=== PATIENT | female | born 1955 | race Caucasian/White ===

== ENCOUNTER → 2021-04-12 | Outpatient (CLI) | payer BC ==
[~2021-04-12] MED LIST: ASPIRIN EC81 MG PO; CLARITIN10 MG PO; ISORDIL TAB 2020 MG PO; NITROGLYCERIN0.4 MG SL; NITROSTAT0.4 MG SL; SYNTHROID75 MCG PO; TOPROL XL25 MG PO
== END ==
LOC: HEART 5 03-31 14:30
DX: I25.10 Atherosclerotic heart disease of native coronary artery without angina pectoris (principal); R06.02 Shortness of breath; R00.2 Palpitations
CPT/HCPCS: 78452; 93306; A9502

== ENCOUNTER 2021-05-24 10:28 | Inpatient (IN) | payer BC ==
[~2021-05-24] VITALS: Ht 152.4 cm; Wt 53.1 kg
[2021-05-24 11:44] LABS: HEMOGLOBIN 12.4 gm/dl (12.3-15.3); RED BLOOD COUNT 3.96 M/UL (4.00-5.10)
[2021-05-24 12:53] LABS: BUN/CREATININE RATIO 27 (0-10)
[2021-05-24] MEDS ORDERED: ATORVASTATIN CA80 MG PO (16:56)
[2021-05-24] MEDS ORDERED: FUROSEMIDE20 MG PO (16:57)
[2021-05-24] MEDS ORDERED: LISINOPRIL5 MG PO (16:57)
[2021-05-24] MEDS ORDERED: LORATADINE10 MG PO (16:58)
[2021-05-24] MEDS ORDERED: ZETIA10 MG PO (16:58)
[2021-05-25 03:25] LABS: HEMOGLOBIN 10.6 gm/dl (12.3-15.3); WHITE BLOOD COUNT 4.5 K/UL (4.5-11.0)
[2021-05-25 03:28] LABS: RED BLOOD COUNT 3.38 M/UL (4.00-5.10)
[2021-05-25 03:47] LABS: BUN/CREATININE RATIO 28 (0-10)
== END 2021-05-25 14:45 | disposition home or self-care (01) | DRG 312 ==
LOC: ER1 10:28 → CDU 15:48
PROVIDERS: Physician Assistant; ADMIT Internal Medicine
DX: I95.1 Orthostatic hypotension (principal); E03.9 Hypothyroidism, unspecified; Z20.822 Contact with and (suspected) exposure to COVID-19; I25.5 Ischemic cardiomyopathy; E78.5 Hyperlipidemia, unspecified; W18.30XA Fall on same level, unspecified, initial encounter; E86.0 Dehydration; I25.10 Atherosclerotic heart disease of native coronary artery without angina pectoris; F17.290 Nicotine dependence, other tobacco product, uncomplicated; C50.919 Malignant neoplasm of unspecified site of unspecified female breast; I44.7 Left bundle-branch block, unspecified; D64.9 Anemia, unspecified; J30.2 Other seasonal allergic rhinitis; I25.2 Old myocardial infarction; Z95.5 Presence of coronary angioplasty implant and graft; Z79.82 Long term (current) use of aspirin; Z80.0 Family history of malignant neoplasm of digestive organs; Z82.49 Family history of ischemic heart disease and other diseases of the circulatory system; Z90.49 Acquired absence of other specified parts of digestive tract; Z98.51 Tubal ligation status
CPT/HCPCS: 36415; 70450; 70551; 71045; 80048; 80053; 81001; 82550; 82553; 83735; 83874; 84439; 84443; 84484; 85025; 93005; 99285; G0378; U0002